=== PATIENT | male | born 2000 | race Caucasian/White ===

== ENCOUNTER 2019-08-02 17:12 | Emergency (ER) | payer MEDICAID ==
[~2019-08-02] VITALS: Ht 180.3 cm; Wt 210.0 kg
[2019-08-02 17:46] VITALS: BP 124/76
[2019-08-02] MEDS ORDERED: IBUPROFEN 600MG TABLET PO ONE (18:00)
[2019-08-02 18:52] LABS: CLARITY URINE CLEAR (CLEAR); COLOR URINE YELLOW (YELLOW); KETONES URINE NEGATIVE (NEGATIVE); LEUKOCYTE ESTERASE URINE NEGATIVE (NEGATIVE); NITRITE URINE NEGATIVE (NEGATIVE); OCCULT BLOOD URINE NEGATIVE (NEGATIVE); PROTEIN URINE NEGATIVE (NEGATIVE); SPECIFIC GRAVITY URINE 1.026 (1.005-1.030)
== END 2019-08-02 19:05 | disposition home or self-care (01) ==
LOC: ER 17:12
DX: S39.012A Strain of muscle, fascia and tendon of lower back, initial encounter (principal); S16.1XXA Strain of muscle, fascia and tendon at neck level, initial encounter; V49.40XA Driver injured in collision with unspecified motor vehicles in traffic accident, initial encounter; Y93.89 Activity, other specified; Y92.488 Other paved roadways as the place of occurrence of the external cause
CPT/HCPCS: 72040; 72100; 81003; 99284

== ENCOUNTER 2020-07-02 23:18 | Emergency (ER) | payer MEDICAID, OTHER ==
[~2020-07-02] VITALS: Ht 180.3 cm; Wt 92.0 kg
[2020-07-03] MEDS ORDERED: FLUT9.9S BOTHNSTRLS (02:37)
[2020-07-03] MEDS ORDERED: CLAR10 PO (02:37)
[2020-07-03 03:19] VITALS: BP 128/74
== END 2020-07-03 03:19 | disposition home or self-care (01) ==
LOC: ER 23:18
DX: R43.0 Anosmia (principal); B94.8 Sequelae of other specified infectious and parasitic diseases; J31.0 Chronic rhinitis; R03.0 Elevated blood-pressure reading, without diagnosis of hypertension
CPT/HCPCS: 99283

== ENCOUNTER 2020-12-28 08:08 | Emergency (ER) | payer MEDICAID, OTHER ==
[~2020-12-28] VITALS: Ht 180.3 cm; Wt 95.0 kg
[~2020-12-28 08:08] MED LIST: CLAR10 PO; FLUT9.9S BOTHNSTRLS
[2020-12-28] MEDS ORDERED: VISCOUS LIDOCAINE 2% 15 ML UDC PO STA (09:08)
[2020-12-28] MEDS ORDERED: MAGNESIUM/ALUMINUM HYDROXIDE/SIMETHICONE 30ML UDC PO STA (09:08)
[2020-12-28] MEDS ORDERED: ACETAMINOPHEN 325MG TABLET PO STA (09:08)
[2020-12-28] MEDS ORDERED: MORPHINE SULFATE 4 MG/ML CPJ (NOT FOR IM USE) IV STA (09:08)
[2020-12-28] MEDS ORDERED: SODIUM CHLORIDE 0.9% 1,000 ML IV ONE (09:15)
[2020-12-28] MEDS ORDERED: MORPHINE SULFATE 2 MG/ML CPJ (NOT FOR IM USE) IV NR (09:45)
[2020-12-28 10:26] LABS: BASOPHILS % 0.1 % (0.0-2.0); EOSINOPHILS % 0.2 % (0.0-5.0); HEMATOCRIT. 43.7 % (42.0-52.0); HEMOGLOBIN. 14.9 g/dL (14.0-18.0); MEAN CORPUSCULAR HEMOGLOBIN 29.2 pg (28.0-32.0); MEAN CORPUSCULAR VOLUME 85.5 fL (80.0-94.0); MEAN PLATELET VOLUME 8.9 fl (7.4-10.4); MONOCYTES % 4.8 % (2.0-8.0); NEUTROPHILS % 81.9 % (40.0-76.0); PLATELET 264 x1000/uL (130-400); RED BLOOD CELL COUNT 5.11 mill/uL (4.7-6.1); RED CELL DISTRIBUTION WIDTH 12.6 % (11.6-14.6)
[2020-12-28 10:36] LABS: CHLORIDE 106 mEq/L (98-107)
[2020-12-28] MEDS ORDERED: ONDA4TAB5 MT (10:54)
[2020-12-28 11:32] VITALS: BP 113/75
== END 2020-12-28 11:50 | disposition home or self-care (01) ==
LOC: ER 08:08
DX: R11.2 Nausea with vomiting, unspecified (principal); R10.13 Epigastric pain; Z79.899 Other long term (current) drug therapy
CPT/HCPCS: 36415; 80053; 83690; 85025; 96360; 99284; J7030; A4315

== ENCOUNTER 2021-02-14 08:01 | Emergency (ER) | payer MEDICAID, OTHER ==
[~2021-02-14] VITALS: Ht 180.3 cm; Wt 95.0 kg
[~2021-02-14 08:01] MED LIST changes: +ONDA4TAB5 MT
[2021-02-14] MEDS ORDERED: SODIUM CHLORIDE 0.9% 1,000 ML IV ONE (09:45)
[2021-02-14] MEDS ORDERED: ONDANSETRON HCL 4MG/2ML INJ IV ONE (09:45)
[2021-02-14 09:53] LABS: BASOPHILS % 0.1 % (0.0-2.0); HEMATOCRIT. 45.3 % (42.0-52.0); HEMOGLOBIN. 15.7 g/dL (14.0-18.0); LYMPHOCYTES % 9.2 % (20.0-50.0); MEAN CORPUSCULAR HEMOGLOBIN 29.1 pg (28.0-32.0); MEAN CORPUSCULAR VOLUME 84.3 fL (80.0-94.0); MEAN PLATELET VOLUME 8.5 fl (7.4-10.4); MONOCYTES % 3.3 % (2.0-8.0); NEUTROPHILS % 87.4 % (40.0-76.0); PLATELET 338 x1000/uL (130-400); RED BLOOD CELL COUNT 5.38 mill/uL (4.7-6.1); RED CELL DISTRIBUTION WIDTH 12.9 % (11.6-14.6)
[2021-02-14 10:00] LABS: CHLORIDE 108 mEq/L (98-107)
[2021-02-14 10:31] LABS: CLARITY URINE CLEAR (CLEAR); COLOR URINE YELLOW (YELLOW); KETONES URINE 2+ (NEGATIVE); LEUKOCYTE ESTERASE URINE NEGATIVE (NEGATIVE); NITRITE URINE NEGATIVE (NEGATIVE); OCCULT BLOOD URINE NEGATIVE (NEGATIVE); PH URINE 6.5 (4.5-8.0); PROTEIN URINE NEGATIVE (NEGATIVE); SPECIFIC GRAVITY URINE 1.032 (1.005-1.030); UROBILINOGEN URINE 0.2 E.U./dL (0.2-1.0)
[2021-02-14] MEDS ORDERED: ONDA4TAB5 MT (12:16)
[2021-02-14] MEDS ORDERED: IOHEXOL-300 100 ML BOTTLE ONE (12:45)
[2021-02-14 13:14] VITALS: BP 132/67
== END 2021-02-14 13:25 | disposition home or self-care (01) ==
LOC: ER 08:01
DX: R10.9 Unspecified abdominal pain (principal); R11.2 Nausea with vomiting, unspecified; F12.10 Cannabis abuse, uncomplicated; Z79.899 Other long term (current) drug therapy
CPT/HCPCS: 36415; 74177; 80053; 81003; 83690; 85025; 93005; 96361; 96374; 99285; J2405; J7030; Q9967

== ENCOUNTER 2021-04-30 10:04 | Emergency (ER) | payer OTHER ==
[~2021-04-30] VITALS: Ht 177.8 cm; Wt 77.0 kg
[2021-04-30] MEDS ORDERED: MAGNESIUM/ALUMINUM HYDROXIDE/SIMETHICONE 30ML UDC PO STA (10:10)
[2021-04-30] MEDS ORDERED: FAMOTIDINE 20MG/2ML VIAL IV STA (10:10)
[2021-04-30] MEDS ORDERED: ONDANSETRON HCL 4MG/2ML INJ IV STA (10:10)
[2021-04-30] MEDS ORDERED: SODIUM CHLORIDE 0.9% 1,000 ML IV ONE (10:15)
[2021-04-30 10:38] LABS: HEMATOCRIT. 42.3 % (42.0-52.0); HEMOGLOBIN. 14.9 g/dL (14.0-18.0); MEAN CORPUSCULAR HEMOGLOBIN 29.6 pg (28.0-32.0); MEAN CORPUSCULAR VOLUME 83.9 fL (80.0-94.0); MEAN PLATELET VOLUME 8.9 fl (7.4-10.4); PLATELET 264 x1000/uL (130-400); RED BLOOD CELL COUNT 5.04 mill/uL (4.7-6.1); RED CELL DISTRIBUTION WIDTH 12.8 % (11.6-14.6)
[2021-04-30 10:45] LABS: CHLORIDE 107 mEq/L (98-107)
[2021-04-30 11:53] LABS: PLATELET ESTIMATE NORMAL
[2021-04-30] MEDS ORDERED: MAG-55 MT (13:19)
[2021-04-30 13:25] VITALS: BP 137/74
== END 2021-04-30 13:52 | disposition home or self-care (01) ==
LOC: ER 10:06
DX: K29.70 Gastritis, unspecified, without bleeding (principal); R03.0 Elevated blood-pressure reading, without diagnosis of hypertension; Z86.19 Personal history of other infectious and parasitic diseases
CPT/HCPCS: 36415; 76705; 80053; 83690; 85025; 93005; 96361; 96374; 96375; 99285; J2405; J3490; J7030; Z7610

== ENCOUNTER 2021-05-21 09:03 | Emergency (ER) | payer OTHER ==
[~2021-05-21] VITALS: Ht 180.3 cm; Wt 96.0 kg
[~2021-05-21 09:03] MED LIST changes: +MAG-55 MT
[2021-05-21 10:04] LABS: BASOPHILS % 0.2 % (0.0-2.0); EOSINOPHILS % 0.1 % (0.0-5.0); HEMATOCRIT. 44.4 % (42.0-52.0); HEMOGLOBIN. 15.4 g/dL (14.0-18.0); LYMPHOCYTES % 8.6 % (20.0-50.0); MEAN CORPUSCULAR HEMOGLOBIN 29.4 pg (28.0-32.0); MEAN CORPUSCULAR VOLUME 84.7 fL (80.0-94.0); MONOCYTES % 3.3 % (2.0-8.0); NEUTROPHILS % 87.8 % (40.0-76.0); PLATELET 267 x1000/uL (130-400); RED BLOOD CELL COUNT 5.24 mill/uL (4.7-6.1); RED CELL DISTRIBUTION WIDTH 13.1 % (11.6-14.6)
[2021-05-21] MEDS: SODIUM CHLORIDE 0.9% 1,000 ML IV ONE (10:06)
[2021-05-21 10:08] LABS: CHLORIDE 108 mEq/L (98-107)
[2021-05-21 10:12] LABS: ETHANOL BLOOD < 10 mg/dL
[2021-05-21] MEDS: PROCHLORPERAZINE 10MG/2ML VIAL IV STA (10:23)
[2021-05-21 10:24] LABS: CLARITY URINE CLEAR (CLEAR); COLOR URINE YELLOW (YELLOW); KETONES URINE 1+ (NEGATIVE); LEUKOCYTE ESTERASE URINE NEGATIVE (NEGATIVE); NITRITE URINE NEGATIVE (NEGATIVE); OCCULT BLOOD URINE NEGATIVE (NEGATIVE); PH URINE >=9.0 (4.5-8.0); PROTEIN URINE 1+ (NEGATIVE); SPECIFIC GRAVITY URINE 1.026 (1.005-1.030)
[2021-05-21 10:36] LABS: *AMPHETAMINES SCREEN URINE NEGATIVE (NEGATIVE); CANNABINOID URINE SCREEN PRESUMTIVE POSITIVE (NEGATIVE); PHENCYCLIDINE URINE SCREEN NEGATIVE (NEGATIVE)
[2021-05-21 10:37] LABS: *BARBITURATES SCREEN URINE NEGATIVE (NEGATIVE); *BENZODIAZEPINES SCREEN URINE NEGATIVE (NEGATIVE); *COCAINE SCREEN URINE NEGATIVE (NEGATIVE); METHADONE URINE SCREEN NEGATIVE (NEGATIVE); OPIATES URINE SCREEN NEGATIVE (NEGATIVE)
[2021-05-21] MEDS ORDERED: PROM25SU57 RC (11:05)
[2021-05-21 12:23] VITALS: BP 114/58
== END 2021-05-21 12:34 | disposition home or self-care (01) ==
LOC: ER 09:03
DX: R11.2 Nausea with vomiting, unspecified (principal); F12.10 Cannabis abuse, uncomplicated; Z98.890 Other specified postprocedural states
CPT/HCPCS: 36415; 80053; 80305; 80320; 81003; 83690; 84484; 85025; 93005; 96361; 96374; 99284; J0780; J7030; Z7610; G0480

== ENCOUNTER 2021-07-22 08:59 | Emergency (ER) | payer OTHER ==
[~2021-07-22] VITALS: Ht 180.3 cm; Wt 91.0 kg
[~2021-07-22 08:59] MED LIST changes: +PROM25SU57 RC
[2021-07-22 09:07] VITALS: BP 103/89
[2021-07-22] MEDS ORDERED: VISCOUS LIDOCAINE 2% 15 ML UDC PO STA (09:29)
[2021-07-22] MEDS ORDERED: DICYCLOMINE 10 MG/5 ML ORAL SYR PO STA (09:29)
[2021-07-22] MEDS ORDERED: MAGNESIUM/ALUMINUM HYDROXIDE/SIMETHICONE 30ML UDC PO STA (09:29)
[2021-07-22] MEDS ORDERED: ONDANSETRON 4MG ODT PO STA (09:29)
[2021-07-22] MEDS ORDERED: FAMOTIDINE 20MG TABLET PO ONE (09:30)
[2021-07-22 09:51] LABS: HEMOGLOBIN. 16.3 g/dL (14.0-18.0); MEAN CORPUSCULAR HEMOGLOBIN 29.2 pg (28.0-32.0); MEAN CORPUSCULAR VOLUME 86.2 fL (80.0-94.0); MEAN PLATELET VOLUME 8.4 fl (7.4-10.4); PLATELET 326 x1000/uL (130-400); RED BLOOD CELL COUNT 5.57 mill/uL (4.7-6.1); RED CELL DISTRIBUTION WIDTH 13.1 % (11.6-14.6)
[2021-07-22 09:55] LABS: CHLORIDE 105 mEq/L (98-107)
[2021-07-22 10:20] LABS: PLATELET ESTIMATE NORMAL
[2021-07-22] MEDS ORDERED: ONDA4TAB5 PO (11:08)
[2021-07-22] MEDS ORDERED: OMEP20TA2 PO (11:08)
== END 2021-07-22 11:26 | disposition home or self-care (01) ==
LOC: ER 08:59
DX: K21.9 Gastro-esophageal reflux disease without esophagitis (principal); Z98.890 Other specified postprocedural states
CPT/HCPCS: 36415; 74176; 80053; 83690; 85025; 99284; Q0162

== ENCOUNTER 2021-07-23 09:14 | Emergency (ER) | payer OTHER ==
[~2021-07-23] VITALS: Ht 172.7 cm; Wt 85.0 kg
[~2021-07-23 09:14] MED LIST changes: +OMEP20TA2 PO; +ONDA4TAB5 PO
[2021-07-23 09:35] VITALS: BP 141/80
[2021-07-23] MEDS ORDERED: METOCLOPRAMIDE HCL 10MG/2ML VIAL IV STA (10:15)
[2021-07-23] MEDS ORDERED: SODIUM CHLORIDE 0.9% 1,000 ML IV ONE (10:15)
[2021-07-23] MEDS ORDERED: VISCOUS LIDOCAINE 2% 15 ML UDC PO STA (10:15)
[2021-07-23] MEDS ORDERED: MAGNESIUM/ALUMINUM HYDROXIDE/SIMETHICONE 30ML UDC PO STA (10:15)
== END 2021-07-23 11:46 | disposition left against medical advice (07) ==
LOC: ER 09:14
DX: Z53.21 Procedure and treatment not carried out due to patient leaving prior to being seen by health care provider (principal)
CPT/HCPCS: J7030

== ENCOUNTER 2023-08-03 08:32 | Emergency (ER) | payer MEDICAID, OTHER ==
[~2023-08-03] VITALS: Ht 180.3 cm; Wt 100.0 kg
[~2023-08-03 08:32] MED LIST changes: -OMEP20TA2 PO; +OMEP20TA23 PO
[2023-08-03 08:48] VITALS: O2SAT 100
[2023-08-03] MEDS: FAMOTIDINE 20MG/2ML VIAL IV ONE (09:08)
[2023-08-03] MEDS: ONDANSETRON HCL 4MG/2ML INJ IV STA (09:08)
[2023-08-03 09:09] LABS: BASOPHILS % 0.2 % (0.0-2.0); EOSINOPHILS % 0.1 % (0.0-5.0); HEMATOCRIT. 47.4 % (42.0-52.0); HEMOGLOBIN. 16.4 g/dL (14.0-18.0); LYMPHOCYTES % 11.4 % (20.0-50.0); MEAN CORPUSCULAR HEMOGLOBIN 29.4 pg (28.0-32.0); MEAN CORPUSCULAR HGB CONC 34.5 g/dL (31.0-37.0); MEAN CORPUSCULAR VOLUME 85.1 fL (80.0-94.0); MEAN PLATELET VOLUME 8.6 fl (7.4-10.4); MONOCYTES % 2.5 % (2.0-8.0); NEUTROPHILS % 85.8 % (40.0-76.0); PLATELET 344 x1000/uL (130-400); RED BLOOD CELL COUNT 5.57 mill/uL (4.7-6.1); RED CELL DISTRIBUTION WIDTH 12.9 % (11.6-14.6); WHITE BLOOD COUNT 11.8 x1000/uL (4.5-11.0)
[2023-08-03] MEDS: MAGNESIUM/ALUMINUM HYDROXIDE/SIMETHICONE 30ML UDC PO STA (09:09)
[2023-08-03] MEDS: SODIUM CHLORIDE 0.9% 100 ML IV ONE (09:14)
[2023-08-03 09:15] LABS: CHLORIDE 105 mEq/L (98-107); POTASSIUM 4.3 mEq/L (3.5-5.1); SODIUM 137 mEq/L (136-145)
[2023-08-03 09:17] LABS: CARBON DIOXIDE 22 mEq/L (21-32)
[2023-08-03 09:18] LABS: CALCIUM 10.3 mg/dL (8.7-10.4)
[2023-08-03 09:22] LABS: CREATININE 0.9 mg/dL (0.6-1.3); GLUCOSE 129 mg/dL (70-105); UREA NITROGEN BLOOD 10 mg/dL (9-23)
[2023-08-03 09:24] LABS: ALANINE AMINOTRANSFERASE 41 IU/L (10-49); ALBUMIN 5.5 g/dL (3.2-4.8); ASPARTATE AMINOTRANSFERASE 24 IU/L (<34)
[2023-08-03 09:25] LABS: BILIRUBIN DIRECT 0.3 mg/dL (<=3.0); BILIRUBIN TOTAL 0.9 mg/dL (0.1-1.0); PROTEIN TOTAL 8.1 g/dL (6.0-8.3)
[2023-08-03] MEDS ORDERED: FAMO-134 MT (12:09)
[2023-08-03 12:24] VITALS: BP 133/78; PULSE 72; RESP 18; TEMP 98.7
== END 2023-08-03 12:25 | disposition home or self-care (01) ==
LOC: ER 08:32
DX: K21.9 Gastro-esophageal reflux disease without esophagitis (principal); Z98.890 Other specified postprocedural states
CPT/HCPCS: 99284; 96374; 96361; 96375; 80076; 80048; 83690; 85025; 36415; J3490; J2405; J7050

== ENCOUNTER 2024-03-14 07:51 | Emergency (ER) | payer BC, MEDICAID ==
[~2024-03-14] VITALS: Ht 180.3 cm; Wt 100.0 kg
[~2024-03-14 07:51] MED LIST changes: +FAMO-134 MT
[2024-03-14 07:56] VITALS: O2SAT 99
[2024-03-14 07:59] VITALS: BP 133/91; PULSE 85; RESP 18; TEMP 98.8; O2SAT 99
[2024-03-14 08:32] LABS: CLARITY URINE CLEAR (CLEAR); COLOR URINE DARK YELLOW (YELLOW); GLUCOSE URINE NEGATIVE (NEGATIVE); KETONES URINE TRACE (NEGATIVE); LEUKOCYTE ESTERASE URINE NEGATIVE (NEGATIVE); NITRITE URINE NEGATIVE (NEGATIVE); OCCULT BLOOD URINE NEGATIVE (NEGATIVE); PROTEIN URINE TRACE (NEGATIVE); SPECIFIC GRAVITY URINE 1.036 (1.005-1.030)
[2024-03-14 08:38] LABS: BASOPHILS % 0.2 % (0.0-2.0); EOSINOPHILS % 0.5 % (0.0-5.0); HEMATOCRIT. 47.2 % (42.0-52.0); HEMOGLOBIN. 16.4 g/dL (14.0-18.0); LYMPHOCYTES % 18.4 % (20.0-50.0); MEAN CORPUSCULAR HEMOGLOBIN 29.9 pg (28.0-32.0); MEAN CORPUSCULAR HGB CONC 34.7 g/dL (31.0-37.0); MEAN CORPUSCULAR VOLUME 86.2 fL (80.0-94.0); MEAN PLATELET VOLUME 8.8 fl (7.4-10.4); MONOCYTES % 7.6 % (2.0-8.0); NEUTROPHILS % 73.3 % (40.0-76.0); PLATELET 319 x1000/uL (130-400); RED BLOOD CELL COUNT 5.48 mill/uL (4.7-6.1); RED CELL DISTRIBUTION WIDTH 12.8 % (11.6-14.6); WHITE BLOOD COUNT 12.9 x1000/uL (4.5-11.0)
[2024-03-14 08:43] LABS: CHLORIDE 103 mEq/L (98-107); POTASSIUM 3.8 mEq/L (3.5-5.1); SODIUM 139 mEq/L (136-145)
[2024-03-14 08:45] LABS: CALCIUM 10.2 mg/dL (8.7-10.4); CARBON DIOXIDE 23 mEq/L (21-32)
[2024-03-14 08:50] LABS: CREATININE 1.1 mg/dL (0.6-1.3); GLUCOSE 136 mg/dL (70-105); UREA NITROGEN BLOOD 17 mg/dL (9-23)
[2024-03-14 08:52] LABS: ALANINE AMINOTRANSFERASE 20 IU/L (10-49); ALBUMIN 5.2 g/dL (3.2-4.8); ASPARTATE AMINOTRANSFERASE 18 IU/L (<34); BILIRUBIN DIRECT 0.2 mg/dL (<=3.0); BILIRUBIN TOTAL 0.7 mg/dL (0.1-1.0)
[2024-03-14 08:53] LABS: PROTEIN TOTAL 8.3 g/dL (6.0-8.3)
[2024-03-14 09:06] LABS: SQUAMOUS EPITHELIAL CELL URINE RARE /lpf (RARE/1+)
[2024-03-14 09:07] LABS: BACTERIA URINE 1+; MUCUS URINE 1+ /lpf (NONE/TRACE); WBC URINE 0-2 /hpf (0-2)
[2024-03-14 09:08] LABS: RBC URINE NONE SEEN /hpf (0-2)
[2024-03-14] MEDS: MAGNESIUM/ALUMINUM HYDROXIDE/SIMETHICONE 30ML UDC PO ONE (09:42)
[2024-03-14] MEDS: FAMOTIDINE 20MG/2ML VIAL IV ONE (09:50)
[2024-03-14] MEDS: ONDANSETRON 4MG ODT PO ONE (09:50)
[2024-03-14] MEDS ORDERED: FAMO40TA70 MT (11:20)
[2024-03-14] MEDS ORDERED: MAG355OR33 PO (11:20)
== END 2024-03-14 11:43 | disposition home or self-care (01) ==
LOC: ER 07:51
DX: K29.70 Gastritis, unspecified, without bleeding (principal); Z79.899 Other long term (current) drug therapy; Z98.890 Other specified postprocedural states
CPT/HCPCS: 99284; 96374; 80076; 80048; 81003; 83690; 85025; 36415; 93005; Q0162; J3490